=== PATIENT | male | born 1980 | race Caucasian/White ===

== ENCOUNTER 2016-08-21 00:59 | Emergency (ER) | payer MEDICAID ==
[~2016-08-21] VITALS: Ht 177.8 cm; Wt 95.3 kg
[2016-08-21] MEDS ORDERED: KETOROLAC TROMETH 60MG/2ML VIAL IM ONE (04:15)
[2016-08-21 04:21] VITALS: BP 137/95
== END 2016-08-21 04:41 | disposition home or self-care (01) ==
LOC: ER 00:59
DX: K08.89 Other specified disorders of teeth and supporting structures (principal); F17.210 Nicotine dependence, cigarettes, uncomplicated
CPT/HCPCS: 96372; 99283; J1885

== ENCOUNTER 2016-11-21 08:49 | Emergency (ER) | payer MEDICAID ==
[~2016-11-21] VITALS: Ht 177.8 cm; Wt 81.6 kg
[2016-11-21 09:00] VITALS: BP 119/87
[2016-11-21] MEDS ORDERED: IBUPROFEN 800 MG TAB PO ONE (09:15)
[2016-11-21] MEDS ORDERED: cefTRIAXone SOD 1,000 MG VL IM ONE (09:15)
== END 2016-11-21 09:46 | disposition home or self-care (01) ==
LOC: ER 08:49
DX: K04.7 Periapical abscess without sinus (principal); F17.210 Nicotine dependence, cigarettes, uncomplicated
CPT/HCPCS: 96372; 99283; J0696

== ENCOUNTER 2016-12-16 10:13 | Emergency (ER) | payer MEDICAID ==
[~2016-12-16] VITALS: Ht 177.8 cm; Wt 90.7 kg
[2016-12-16 10:39] VITALS: BP 138/83
== END 2016-12-16 11:57 | disposition home or self-care (01) ==
LOC: ER 10:13
DX: M79.601 Pain in right arm (principal); X58.XXXA Exposure to other specified factors, initial encounter; Y93.89 Activity, other specified; Y92.89 Other specified places as the place of occurrence of the external cause; Y99.8 Other external cause status

== ENCOUNTER 2018-05-02 12:19 | Inpatient (IN) | payer MEDICAID ==
[~2018-05-02] VITALS: Ht 177.8 cm; Wt 99.4 kg
[2018-05-02] MEDS ORDERED: PIPERACILLIN-TAZOB 3.375GM 100 ML IV ONE (15:30)
[2018-05-02 16:08] LABS: Basophils # (auto) 0.1 uL; Basophils % (auto) 0.5 % (0.0-2.0); Eosinophils # (auto) 0.1 uL; Eosinophils % (auto) 0.7 % (0.0-7.0); Hematocrit 48.3 % (41.0-53.0); Hemoglobin 16.5 g/dL (13.5-17.5); Lymphocytes # (auto) 2.8 uL; Lymphocytes % (auto) 21.1 % (10.0-50.0); Mean Corpuscular Hemoglobin 32.1 pg (28.0-32.0); Mean Corpuscular Hgb Conc. 34.2 g/dL (32.0-36.0); Mean Corpuscular Volume 93.9 fL (80.0-100.0); Monocytes # (auto) 1.6 uL; Monocytes % (auto) 11.9 % (0.0-12.0); Neutrophils # (auto) 8.9 uL; Neutrophils % (auto) 65.8 % (37.0-80.0); Nucleated Red Blood Cells % 0.1 %; Platelet Count (auto) 285 10^3/uL (140-450); Red Blood Cells 5.14 10^6/uL (4.5-5.90); Red Cell Distribution Width 13.4 % (11.8-14.3); White Blood Cell 13.5 10^3/uL (4.4-10.8)
[2018-05-02 16:13] LABS: INR 0.98 (0.9-1.15); Partial Thromboplastin Time 27.1 sec (23.78-33.04); Prothrombin Time 10.5 sec (9.27-12.13)
[2018-05-02 16:17] LABS: Albumin 3.6 g/dL (3.4-5.0); Anion Gap 7 (5-15); Blood Urea Nitrogen 25 mg/dL (7-18); Calcium 9.2 mg/dL (8.5-10.1); Carbon Dioxide 26 mmol/L (21-32); Chloride 102 mmol/L (98-107); Glucose 114 mg/dL (74-106); Potassium 3.4 mmol/L (3.5-5.1); Sodium 135 mmol/L (136-145)
[2018-05-02 16:24] LABS: Alanine Aminotransferase 40 U/L (16-61); Alkaline Phosphatase 69 U/L (45-117); Aspartate Aminotransferase 42 U/L (15-37); BUN/Creatinine Ratio 18.7; GFR African American 77 mL/min; GFR Non-African American 63 mL/min; Total Protein 8.6 g/dL (6.4-8.2)
[2018-05-02] MEDS ORDERED: VANCOMYCIN PER PHARMACY 0 MG IV SCH (21:45)
[2018-05-02] MEDS ORDERED: HYDROcodone-ACET 5/325MG TAB PO PRN (21:45)
[2018-05-02] MEDS ORDERED: POTASSIUM CHL 20 Meq TABLET PO ONE (21:45)
[2018-05-02] MEDS ORDERED: ACETAMINOPHEN 500 MG TAB PO PRN (21:45)
[2018-05-02] MEDS ORDERED: ONDANSETRON HCL 4 MG/2 ML VIAL IV PRN (21:45)
[2018-05-02] MEDS: SODIUM CHLORIDE 0.9% 1,000 ML IV SCH (22:12)
[2018-05-03] MEDS: VANCOMYCIN 1GM/250ML 250 ML IV SCH ×3 (00:03→22:31)
[2018-05-03 07:21] LABS: Basophils # (auto) 0.1 uL; Basophils % (auto) 0.8 % (0.0-2.0); Eosinophils # (auto) 0.2 uL; Eosinophils % (auto) 1.6 % (0.0-7.0); Hematocrit 43.8 % (41.0-53.0); Hemoglobin 14.9 g/dL (13.5-17.5); Lymphocytes # (auto) 2.2 uL; Lymphocytes % (auto) 22.7 % (10.0-50.0); Mean Corpuscular Hemoglobin 31.7 pg (28.0-32.0); Mean Corpuscular Hgb Conc. 33.9 g/dL (32.0-36.0); Mean Corpuscular Volume 93.5 fL (80.0-100.0); Monocytes % (auto) 10.3 % (0.0-12.0); Neutrophils # (auto) 6.3 uL; Neutrophils % (auto) 64.6 % (37.0-80.0); Platelet Count (auto) 237 10^3/uL (140-450); Red Blood Cells 4.68 10^6/uL (4.5-5.90); Red Cell Distribution Width 13.1 % (11.8-14.3); White Blood Cell 9.7 10^3/uL (4.4-10.8)
[2018-05-03 07:40] LABS: BUN/Creatinine Ratio 22.1; Calcium 8.7 mg/dL (8.5-10.1); Potassium 4.1 mmol/L (3.5-5.1)
--- NOTE | 2018-05-03 08:30 | NUR ---
ADMIT: MS admit from ER RAFAL TORRES admitted to tele/MS after SBAR received. Patient oriented to SELVIN THIBODEAUX, primary RN, unit, room, bed, and unit policies regarding patient care and visiting hours. Patient weighed by bedscale and encouraged to call if they need something. All questions and concerns addressed, patient verbalized understanding. Note:
[2018-05-03] MEDS: cefTRIAXone 1GM/50ML D5W 50 ML IV SCH (09:43)
--- NOTE | 2018-05-03 10:15 | NUR ---
: Dr Reid at bedside to see patient.
--- NOTE | 2018-05-03 11:00 | NUR ---
WOUND CARE: Kirsten, Wound care nurse, at bedside.
--- NOTE | 2018-05-03 11:04 | NUR ---
WOUND CARE NOTE: Wound care in to see patient per wound care request regarding "Lt hip wound" that are noted present on admission. ED nurse took photograph of patient's wound upon admission for reference. Patient is 37 years old male with admitting diagnosis of Lt. lat hip wound. Patient is resting in bed in Rm. 251A. He's awake, alert and fully oriented. Patient is in no stated pain at this time. He states that he's ambulatory and he's able to turn and reposition self. Noted 54y20vo open full thickness wound with no measurable depth to patient's L hip. Wound is dusky red with yellow adherent slough. Proximal to it is scabbed wound measuring 4x2cm. Patient states that he slipped and fell on the ground about a week ago. Area is bright red with serous drainage and foul odor noted. Cleansed L hip wound with NS, patted dry with sterile gauze, took specimen for wound culture and sent to lab for processing. Applied Thera honey gel to wound bed area and covered with Opti foam gentle dressing. Patient tolerated well. RECOMMENDATION: Daily/PRN dressing change to L hip wound per MD order, redistribute pressure points with pillows, continue monitoring by wound care while patient is hospitalized. Addendum: 05/03/18 at 1544 by Kirsten Sheikh RN Amended: Links added.
[2018-05-03 13:00] VITALS: BP 139/77
[2018-05-03] MEDS: SODIUM CHLORIDE 0.9% 1,000 ML IV SCH (14:25)
[2018-05-03] MEDS ORDERED: NORPTMEDS CO (17:07)
[2018-05-03 17:34] VITALS: BP 125/68
--- NOTE | 2018-05-03 19:24 | NUR ---
CLOSING SHIFT NOTE: Report given to NOC Suraj GRIJALVA. Endorsed care of patient.
[2018-05-03 20:40] LABS: Alcohol, Urine < 3.0 mg/dL (0-5); Amphetamine Screen, Urine POSITIVE (NEGATIVE); Barbiturate Scree,Urine NEGATIVE (NEGATIVE); Benzodiazephine Screen, Urine NEGATIVE (NEGATIVE); Cannabinoid Screen, Urine NEGATIVE (NEGATIVE); Cocaine Screen, Urine NEGATIVE (NEGATIVE); Opiate Scree,Urine NEGATIVE (NEGATIVE); Phencyclidine Screen, Urine NEGATIVE (NEGATIVE)
[2018-05-03 21:07] LABS: Urine Bacteria NONE SEEN /hpf (None Seen); Urine Blood Negative /uL (Negative); Urine Specific Gravity 1.023 (1.001-1.035); Urine WBC 1 /hpf (0 - 3)
[2018-05-03 22:00] VITALS: BP 117/66
[2018-05-04 05:48] VITALS: BP 129/85
--- NOTE | 2018-05-04 07:44 | NUR ---
Shift Note The patient had an uneventful night, tolerated treatments well, had no complaints. Denied pain, was able to sleep all night. Tolerated all medications, will continue to monitor.
[2018-05-04] MEDS: SODIUM CHLORIDE 0.9% 1,000 ML IV SCH (09:54)
[2018-05-04] MEDS: VANCOMYCIN 1GM/250ML 250 ML IV SCH ×2 (09:54→22:19)
[2018-05-04] MEDS: cefTRIAXone 1GM/50ML D5W 50 ML IV SCH (09:54)
--- NOTE | 2018-05-04 13:12 | NUR ---
assessment Patient is a 37 year old male who is alert and oriented. Patients cognitive abilities are intact. Prior to admission patient lived home with his girlfriend and functioned independently. Patient informed me he is able to care for his own ADLs. Per patient he will return home to his prior living arrangements post discharge and family will transport him home. Patient has no need for DME. Ginette Medrano to see patient for PCP. I informed patient he has a right to speak to a older adult social work specialist regarding all care. I informed patient he has a right to participate in any and all discharge planning. Patient is aware of visiting hours on the hospital floor. I informed patient he has a right to privacy. Patient does not have a POA and advanced directive. I have offered patient information on POA and advanced directives. I informed the patient the advantages and benefits of having an Advanced Directive. Patient verbalized understanding and agreed to discharge plan. Per ss consult homeless and no transportation. Patient informed me he is not homeless. Patient resides with his girlfriend Adelaide Espinal. Addendum: 05/06/18 at 1715 by Ginette Fitzgerald Amended: Links added.
[2018-05-04 22:00] VITALS: BP 144/81
[2018-05-05 05:07] VITALS: BP 133/81
--- NOTE | 2018-05-05 07:45 | NUR ---
OPENING NOTE OBSERVED PT SITTING UP IN BED, NO SOB/DISTRESS NOTED. PT DENIES ANY PAIN AT THIS TIME. UPDATED ON POC AND PT VERBALIZED UNDERSTANDING. ENCOURAGED PT TO CONTACT STAFF FOR PRN ASSISTANCE. CALL LIGHT IS WITHIN REACH. FALL PRECAUTIONS IN PLACE. WILL CONTINUE TO MONITOR Q1H AND PRN. CONTINUE PT CARE.
[2018-05-05 08:07] LABS: BUN/Creatinine Ratio 15.7; Calcium 8.5 mg/dL (8.5-10.1); Potassium 4.3 mmol/L (3.5-5.1)
[2018-05-05 08:27] LABS: Basophils # (auto) 0.4 uL; Basophils % (auto) 4.7 % (0.0-2.0); Eosinophils # (auto) 0.2 uL; Eosinophils % (auto) 2.1 % (0.0-7.0); Hematocrit 44.6 % (41.0-53.0); Hemoglobin 15.3 g/dL (13.5-17.5); Lymphocytes # (auto) 2.3 uL; Mean Corpuscular Hemoglobin 32.2 pg (28.0-32.0); Mean Corpuscular Hgb Conc. 34.4 g/dL (32.0-36.0); Mean Corpuscular Volume 93.6 fL (80.0-100.0); Monocytes # (auto) 0.5 uL; Monocytes % (auto) 6.1 % (0.0-12.0); Neutrophils # (auto) 4.5 uL; Neutrophils % (auto) 57.1 % (37.0-80.0); Platelet Count (auto) 228 10^3/uL (140-450); Red Blood Cells 4.76 10^6/uL (4.5-5.90); Red Cell Distribution Width 12.8 % (11.8-14.3); White Blood Cell 7.8 10^3/uL (4.4-10.8)
[2018-05-05 09:00] VITALS: BP 144/89
[2018-05-05] MEDS: cefTRIAXone 1GM/50ML D5W 50 ML IV SCH (09:22)
[2018-05-05] MEDS: SODIUM CHLORIDE 0.9% 1,000 ML IV SCH (09:22)
--- NOTE | 2018-05-05 09:50 | NUR ---
AT BEDSIDE DR. LACEY AT BEDSIDE DISCUSSING POC WITH PT.
[2018-05-05] MEDS: VANCOMYCIN 1GM/250ML 250 ML IV SCH ×2 (10:06→22:49)
--- NOTE | 2018-05-05 12:32 | NUR ---
POSITIVE WOUND CULTURE RECEIVED PHONE CALL FROM [facility] RE: POSITIVE WOUND CULTURE WITH MRSA. MESSAGE LEFT AT DR. LUNA EXCHANGE TO INFORM.
[2018-05-05 12:35] VITALS: BP 138/87
--- NOTE | 2018-05-05 15:00 | NUR ---
WOUND CARE WOUND CARE PROVIDED TO LEFT HIP WOUND PER BUSINESS PLANNER ORDER. AREA CLEANSED WITH WOUND CLEANSER AND PATTED DRY WITH STERILE GUAZE. AREA COVERED WITH THERA HONEY, OPTIFOAM DRESSING, AND SECURED WITH PAPER TAPE. PT C/O MILD DISCOMFORT WITH WOUND CLEANSING. WOUND BED PINK/RED/YELLOW. MILD ODOR NOTED. MODERATE AMOUNT OF YELLOW DRAINAGE ON REMOVED DRESSING.
[2018-05-05 17:19] VITALS: BP 131/83
[2018-05-05 21:30] VITALS: BP 131/86
[2018-05-06 05:00] VITALS: BP 132/83
--- NOTE | 2018-05-06 05:50 | NUR ---
Shift Note The patient had an uneventful night, tolerated treatments well, Had no complaints. He was able to sleep most of the shift but was able to take meds. No complaint of pain from the wound. Will continue to monitor.
--- NOTE | 2018-05-06 07:55 | NUR ---
Opening Shift Note Assumed care of patient, awake and alert and oriented X4. No S/S of distress/SOB or pain. Instructed on POC and to call for assist PRN, will continue to monitor for changes. Dressing to left hip C/D/I.
[2018-05-06 08:00] VITALS: BP 139/76
--- NOTE | 2018-05-06 08:22 | NUR ---
Dr Reid at bedside.
[2018-05-06] MEDS: cefTRIAXone 1GM/50ML D5W 50 ML IV SCH (09:07)
[2018-05-06] MEDS: VANCOMYCIN 1GM/250ML 250 ML IV SCH (10:25)
--- NOTE | 2018-05-06 11:55 | NUR ---
WOUND Wound picture taken of left hip. Wound care provided as ordered, patient tolerated procedure well, will continue to monitor.
--- NOTE | 2018-05-06 14:25 | NUR ---
Discharge instructions given as ordered. Encourage to follow up with PMD as instructed. All questions and concerns addressed. Patient verbalized understanding. Medication reconciliation form completed and copy given to patient. Home medications held in Pharmacy returned to patient, and needed vaccines given. IV removed with catheter intact, pressure dressing applied. Patient refused to be taken to vehicle via wheelchair with all personal belongings. No distress noted at time of departure.
== END 2018-05-06 14:25 | disposition home or self-care (01) | DRG 720 ==
LOC: ER 12:19 → EDBD 12:19 → EDUNIT# 12:19 → OVERFLOW 21:51 → EAST 05-03 08:20
PROVIDERS: ADMIT Nurse Practitioner Family; ATTEND Internal Medicine
DX: A41.9 Sepsis, unspecified organism (principal); L03.116 Cellulitis of left lower limb; B95.62 Methicillin resistant Staphylococcus aureus infection as the cause of diseases classified elsewhere; E87.6 Hypokalemia; J45.909 Unspecified asthma, uncomplicated; F17.210 Nicotine dependence, cigarettes, uncomplicated; Z59.0 Homelessness
CPT/HCPCS: 36415; 72170; 80048; 80053; 80202; 80307; 81001; 83605; 84484; 85025; 85610; 85730; 87040; 87077; 87186; 87205; 96374; G0378; J0696; J2543